=== PATIENT | female | born 1975 | race Caucasian/White ===

== ENCOUNTER 2017-02-10 22:20 | Emergency (ER) | payer OTHER ==
[~2017-02-10] VITALS: Ht 162.6 cm; Wt 122.0 kg
[2017-02-11] MEDS ORDERED: VIGAMOX OD (01:54)
[2017-02-11] MEDS ORDERED: IBUPROFEN600 MG PO (01:54)
[2017-02-11 01:58] VITALS: BP 137/84
== END 2017-02-11 01:58 | disposition home or self-care (01) | DRG 125 ==
LOC: ED 22:20
DX: H17.9 Unspecified corneal scar and opacity (principal)

== ENCOUNTER 2021-08-28 18:15 | Emergency (ER) | payer OTHER ==
[~2021-08-28] VITALS: Ht 162.6 cm; Wt 80.0 kg
[~2021-08-28 18:15] MED LIST: IBUPROFEN600 MG PO; VIGAMOX OD
[2021-08-28 20:54] LABS: HEMATOCRIT 39.8 % (37.0-47.0); IMMATURE GRANULOCYTES 0.2 % (0.0-5.0); MEAN CELL VOLUME 93.9 fL CALC (80.0-100.0); MEAN CORPUSCULAR HGB 30.7 pG CALC (26.0-32.0); MEAN CORPUSCULAR HGB CONC 32.7 g/dL CAL (32.0-36.0); NEUT# 8.64 thou/uL (2.00-7.15); RED BLOOD COUNT 4.24 mill/uL (4.20-5.60); RED CELL DISTRI WIDTH 12.5 % (11.5-15.5)
[2021-08-28 21:07] LABS: ALBUMIN 4.7 g/dL (3.2-5.0); ALKALINE PHOSPHATASE 84 u/l (38-126); ANION GAP 14 (6-22 (CALC)); BILIRUBIN, TOTAL 0.5 mg/dL (0.0-1.4); BUN 16 mg/dL (7-17); BUN/CREATININE RATIO 19 (12-20 (CALC)); CARBON DIOXIDE 29 mmol/l (22-30); CHLORIDE 99 mmol/l (95-108); CREATININE 0.8 mg/dL (0.5-1.0); GFR > 60 ML/MIN (>=60 (CALC)); GFR FOR AFR.AMER. > 60 ML/MIN (>=60 (CALC)); POTASSIUM 3.7 mmol/l (3.5-5.1); SGOT/AST 39 u/l (14-36); SODIUM 138 mmol/l (137-146); TOTAL PROTEIN 8.3 g/dL (6.3-8.2)
[2021-08-28] MEDS ORDERED: XYREM500 MG/ML PO (21:35)
[2021-08-28] MEDS ORDERED: EFFEXOR XR75 MG/CAP PO (21:35)
[2021-08-28] MEDS ORDERED: ALDACTAZID1 PO (21:36)
[2021-08-28] MEDS ORDERED: SYNTHROID25 MCG PO (21:36)
[2021-08-28] MEDS ORDERED: LORTAB5 PO (22:30)
[2021-08-28] MEDS ORDERED: VOLTAREN - GENE75 MG PO (22:30)
[2021-08-28 22:40] VITALS: BP 116/61
== END 2021-08-28 22:40 | disposition home or self-care (01) | DRG 563 ==
LOC: ED 18:15
PROVIDERS: Family Medicine
PROC: 0RSJXZZ Reposition Right Shoulder Joint, External Approach (ICD-10-PCS; principal; 2021-08-28)
DX: S43.014A Anterior dislocation of right humerus, initial encounter (principal); E05.00 Thyrotoxicosis with diffuse goiter without thyrotoxic crisis or storm; G47.419 Narcolepsy without cataplexy; V86.55XA Driver of 3- or 4- wheeled all-terrain vehicle (ATV) injured in nontraffic accident, initial encounter; Y93.I9 Activity, other involving external motion; Y92.833 Campsite as the place of occurrence of the external cause